=== PATIENT | male | born 1975 | race Caucasian/White ===

== ENCOUNTER 2017-01-05 16:51 | Emergency (ER) | payer OTHER, BC ==
[2017-01-05 21:01] VITALS: BP 142/79
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
== END 2017-01-05 18:05 | disposition home or self-care (01) ==
LOC: VM.ED 16:51
DX: S09.90XA Unspecified injury of head, initial encounter (principal); S16.1XXA Strain of muscle, fascia and tendon at neck level, initial encounter; J45.909 Unspecified asthma, uncomplicated; E78.5 Hyperlipidemia, unspecified; Z88.6 Allergy status to analgesic agent; V89.2XXA Person injured in unspecified motor-vehicle accident, traffic, initial encounter
CPT/HCPCS: 70450; 71020; 72125; 99285